=== PATIENT | female | born 1995 | race Hispanic/Latino ===

== ENCOUNTER → 2017-01-27 | Outpatient (CLI) | payer BC ==
[~2017-01-27] MED LIST: FUROSEMIDE INJ 10 MG/ML 4 ML VIAL ONE
--- NOTE | 2017-01-27 11:10 | Diagnostic Imaging Report ---
PROCEDURE:ABDOMINAL ULTRASOUND COMPARISON:None. INDICATIONS:abd pain FINDINGS: Liver: 12.3 cm. Normal hepatic parenchymal echogenicity. No focal mass. Main portal vein: 0.9 cm. Hepatopedal flow. Gallbladder: No echogenic calculi, gallbladder wall thickening, or pericholecystic fluid. Common Bile Duct: 0.2 cm. No echogenic filling defect. Sonographic Antonio's sign: Negative. Right kidney: 10.6 cm. No solid or cystic mass, echogenic calculi, or hydronephrosis. Normal parenchymal echogenicity. Left kidney: 9.7 cm. No solid or cystic mass, echogenic calculi, or hydronephrosis. Normal parenchymal echogenicity. Spleen: 10.0 cm. Pancreas: The visualized portions of the pancreas are normal. Inferior vena cava: Normal. Aorta: Normal. Ascites: None. CONCLUSION: No acute sonographic abnormality. Dictated by: Gaudencio Saini M.D. on 01/27/2017 at 11:18 Electronically approved by: Gaudencio Saini M.D. on 01/27/2017 at 11:18
== END ==
LOC: US 09:49
PROVIDERS: ATTEND Family Medicine
DX: R10.9 Unspecified abdominal pain (principal)
CPT/HCPCS: 76700; J1940